=== PATIENT | female | born 2005 | race Caucasian/White ===

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

== ENCOUNTER 2023-03-20 12:42 | Outpatient (CLI) | payer OTHER, SELFPAY ==
[2023-03-20 13:12] LABS: Hematocrit 40.1 % (37.0-47.0); Hemoglobin 13.2 g/dL (12.0-15.0); Mean Corpuscular HGB Conc 32.9 g/dl (32-36); Mean Corpuscular Hemoglobin 30.7 pg (26-34); Mean Corpuscular Volume 93.3 fl (80-100); Mean Platelet Volume 10.7 fl (7.4-10.4); Platelet Count Result 290 k/mm3 (150-375); Red Cell Distribution Width 12.7 % (11.5-14.5); White Blood Count 8.9 K/mm3 (4.5-10.0)
[2023-03-20 13:42] LABS: Free T4 Free Thyroxine 1.18 ng/mL (0.78-2.19)
== END 2023-03-20 12:43 | disposition home or self-care (01) ==
LOC: ANHLAB 12:46
PROVIDERS: PCP Physician Assistant; Visit Provider Advanced Practice Midwife
DX: N92.6 Irregular menstruation, unspecified (principal)
CPT/HCPCS: 36415; 84439; 84443; 85027

== ENCOUNTER → 2023-06-15 09:13 | Outpatient (CLI) | payer OTHER, SELFPAY ==
--- NOTE | ~2023-06-15 | US_ITS ---
Limited Abdominal Sonogram: Real-time sonographic imaging of the left upper quadrant was performed. Clinical History: Left upper quadrant pain Findings: The spleen is normal in size and echotexture. No focal splenic mass seen. Visualized left kidney is unremarkable, without hydronephrosis. No free fluid seen. Impression: No significant abnormality seen. Reviewed, dictated and finalized at [facility]. VITY THERAPIST Impression: No significant abnormality seen.
== END ==
PROVIDERS: PCP Physician Assistant; Visit Provider Physician Assistant
DX: R10.12 Left upper quadrant pain (principal)
CPT/HCPCS: 76705

== ENCOUNTER 2025-05-25 22:30 | Emergency (ER) | payer OTHER, SELFPAY ==
--- OUTSIDE RECORDS SUMMARY | 2009-05-12 03:00 | XMS_ITS | Continuity of Care Document ---
Author Organization [facility] Address [address] [place] [address] Phone Care Team Providers Care Senior Staff Specialized Employment Name Role Phone Bhavana Wilson Unavailable Unavailable Procedures Procedure Date Eye Exam, New Patient Refraction Advance Directives Directive Yes / No Effective Date File Name No Information Encounters Encounter Description Practice Location Reason(s) For Visit Diagnoses Date Provider Providers Copied on Encounter [facility], [id number] [place] [address] [address], [place], [place], [id number], [place] tel:[phone] SEC [facility] No Information 1-200 9 Katie Bateman. [address] [facility] , [address], [place], [address], [place]. tel:[phone] Family History Family Member Type Diagnosis Age At Onset No Information Payers Payer name Insurance type Covered alliance party ID Authoriza timike(s) [employer] Plan [id number] Social History Type Description Quantity Date Captured Comments Sex Female Smoking Status No Information Chief Complaint And Reason For Visit No Information Reason For Referral Reason For Referral No Information History Of Present Illness Encounter Date Complaint History Of Prese nt Illness No Information Functional Status Date Functional Assessmen t No Information Instructions Date Instruction Additional Infor mation No Information Assessments Type Assessment Date No Information Patient Care Teams Name Effective Dates (start - stop) Status Members No Information
--- OUTSIDE RECORDS SUMMARY | 2018-10-06 09:22 | XMS_ITS | Continuity of Care Document ---
Author Organization [facility] Address [address] [place] [address] Phone Care Team Providers Care Cement Gun Operator Name Role Phone Enrique Balderas MD Unavailable Unavailable Allergies, Adverse Reactions, Alerts Substance Reaction Status Criticality No Known Allergies Active No Inform ation Medications Medication Instructions Dosage Effective Dates (start - stop) Status Comments Qvar 40 mcg/actuation Metered Aerosol oral inhaler INHALE 2 PUFF BY INHALATION ROUTE 2 TIMES EVERY DAY - Active Auvi-Q 0.3 mg/0.3 mL injection, auto-injector inject 0.3 milliliter by intramuscular route once as needed for anaphylaxis 0.3 MG - Active 4 syringes total please ProAir HFA 90 mcg/actuation aerosol inhaler inhale 2 puff by inhalation route every 4 - 6 hours as needed - Active loratadine 10 mg tablet take 1 tablet by oral route every day 10 MG - Active Qvar 40 mcg/actuation Metered Aerosol oral inhaler inhale 2 puff by inhalation route 2 times every day - No Longer Active Advance Directives Directive Yes / No Effective Date File Name No Information Encounters Encounter Description Practice Location Reason(s) For Visit Diagnoses Date Provider Providers Copied on Encounter [email or web address], [address], [place], [place], [address], tel:[phone] Transfer Allergy No Information 9 Andrey Nunez. [address] [address], [place], [place], [id number] , [place]. tel: [phone] [facility], [address], [place], [place], [address], [place] tel:[phone] Transfer Allergy Peanut allergyAllergic rhinitis caused by moldAllergic rhinitis due to animal hair and danderMild persistent asthma without complication Andrey Nunez. [address] [address], [place], [place], [address] , . tel: [phone] Referring Provider: Lex Martinez, [address] [facility] [address], [place], [address]. tel:[phone] Family History Family Member Type Diagnosis Age At Onset Mother Problem (finding) Allergies Mother Problem (finding) asthma Father Problem (finding) asthma Payers Payer name Insurance type Covered constitution party ID Nelly seo(s) [facility] [id number] Social History Type Description Quantity Date Captured Comments Sex Female Smoking Status No Information Chief Complaint And Reason For Visit No Information Reason For Referral Reason For Referral No Information History Of Present Illness Encounter Date Complaint History Of Prese nt Illness No Information Functional Status Date Functional Assessmen t No Information Medications Administered Medication Instructions Dosage Effective Dates (start - stop) Status Comments No Drug Therapy Prescribed Instructions Date Instruction Additional Infor mation No Information Assessments Type Assessment Date No Information Patient Care Teams Name Effective Dates (start - stop) Status Members No Information
[2025-05-25 22:35] VITALS: BP 143/102; PULSE 99; RESP 14; TEMP 36.7; O2SAT 100
[2025-05-25 23:36] LABS: Add Urine Microscopic? YES; Appearance Urine Cloudy (Clear); Glucose Urine UA Negative (Negative); Leukocyte Esterase Ur 3+ LEU/UL (Negative); Need Manual Microscopic Reviewed; Nitrate Urine Negative (Negative); Non Pathogenic Casts 0-2; Specific Grav Ur 1.019 (1.001-1.035)
--- NOTE | 2025-05-26 01:33 | ED.FEMALEGU ---
HPI - Female Genitourinary General Chief complaint: Urogenital-Female Stated complaint: Bladder pain x 3weeks Time Seen by Provider: 05/26/25 01:22 History of Present Illness HPI Narrative: Patient is a 19-year-old female who presents to the ER with a 3 week history of urinary symptoms. She reports she went to urgent care last week and they told her she did not have urinary tract infection. Patient reports she has continued to have bladder ?pressure along with decreased amounts of urine and increased frequency. She denies any burning with urination, recent fevers, or acute back pain. Patient reports she is on her menstrual period right now. She denies any other history pertinent to this ER visit, although she reports she had multiple urinary tract infections as a child. Related Data Home Medications ?Medication ?Instructions ?Recorded ?Confirmed ?Last Taken ?Type albuterol sulfate 90 mcg/actuation 2 puff inhalation QID PRN Wheezing 06/29/21 06/29/21 Unknown History aerosol inhaler Allergies Allergy/AdvReac Type Severity Reaction Status Date / Time peanut Allergy Severe Anaphylaxis Verified 05/25/25 22:39 Review of Systems Review of Systems: All systems reviewed & are unremarkable except as noted in HPI and below PMFSH Past Medical History Medical History Asthma Social History Social History Smoking status: Never smoker Alcohol intake: never Substance use: never Living arrangements: with family Occupation/Education: student Gender identity (if verbalized by the patient): Female Exam Narrative: GENERAL: Well appearing, well-nourished, non-toxic, in no acute distress. HEAD: Normocephalic, atraumatic. NECK: Supple. No adenopathy, no masses. RESPIRATORY: Airway patent, respirations nonlabored. Clear to auscultation bilaterally, no rales, rhonchi, wheezing. CARDIOVASCULAR: Regular rate and rhythm without murmurs, rubs, or gallops. Peripheral pulses 2+ and equal bilaterally. ABDOMINAL: Soft, nontender, nondistended, no hepatosplenomegaly. Normoactive BS. MUSCULOSKELETAL: Moves all extremities. Strength/ROM intact without gross deformities. SKIN: Warm, dry, normal color. No rashes. NEURO: A&O X3. Speech clear. Cranial nerves II-XII intact. No ataxic movements. PSYCHIATRIC: Appropriate mood and affect. Normal interaction. Course Vital Signs Vital signs: Vital Signs Temperature 36.7 C 05/25/25 22:35 Pulse Rate 99 05/25/25 22:35 Respiratory Rate 14 05/25/25 22:35 Blood Pressure 143/102 H 05/25/25 22:35 Pulse Oximetry 100 05/25/25 22:35 Oxygen Delivery Room Air 05/25/25 22:35 Temperature 36.7 C 05/25/25 22:35 Pulse Rate 99 05/25/25 22:35 Respiratory Rate 14 05/25/25 22:35 Blood Pressure 143/102 H 05/25/25 22:35 Pulse Oximetry 100 05/25/25 22:35 Oxygen Delivery Room Air 05/25/25 22:35 MDM - Female Genitourinary MDM Narrative Medical decision making narrative: Patient is a 19-year-old female who presents to the ER with a 3 week history of urinary symptoms. She reports she went to urgent care last week and they told her she did not have urinary tract infection. Patient reports she has continued to have bladder ?pressure along with decreased amounts of urine and increased frequency. She denies any burning with urination, recent fevers, or acute back pain. Patient reports she is on her menstrual period right now. She denies any other history pertinent to this ER visit, although she reports she had multiple urinary tract infections as a child. Patient Education/Shared MDM: Results of lab work shared with patient. She will be given Toradol, pyridium, and her 1st dose antibiotics here in the ER. Patient strongly advised to maintain hydration status upon discharge and follow-up with her PCP in a week for re-evaluation. She will be discharged home with a prescription for pyridium and Bactrim. Strict return precautions provided. Patient verbalized understanding and is in agreement with plan. Vital signs stable at time of discharge. All questions answered. Differential Diagnosis Differential diagnosis: Likely urinary tract infection, cystitis and dysmenorrhea Lab Data Attestation: I reviewed the patient's lab results. Labs: Lab Results 05/25/25 Range/Units 22:45 Urine Color Yellow (Yellow) Urine Appearance Cloudy H (Clear) Urine pH 5.5 (5.0-9.0) Ur Specific [place] 1.019 (1.001-1.035) Urine Protein 2+ H (Negative) mg/dL Urine Glucose (UA) Negative (Negative) mg/dL Urine Ketones Trace H (Negative) mg/dL Ur Blood (Man) 2+ H (Negative) Urine Nitrate Negative (Negative) Urine Bilirubin Negative (Negative) Urine Urobilinogen 0.2 (<2.0) mg/dL Add Ur Microanalysis Reviewed Leukocyte Esterase Rfl 3+ H (Negative) TRACY/UL Urine RBC 51-100 H (0-2) /hpf Urine WBC >100 H (0-3) /hpf Ur Squamous Epith Cells Few (Few) /hpf Urine Bacteria 1+ H /hpf Urine Casts 0-2 Discharge Plan Discharge Clinical Impression: Urinary tract infection Patient Disposition: Home Condition: Stable Instructions: Antibiotic Form, Urinary Tract Infection in Women (ED) Additional Instructions: Please return to the ER with any worsening symptoms. Follow-up with primary care provider in 1 week to ensure your urinary tract infection is gone. Take all medications as prescribed, including regularly scheduled medications. Please complete your full dose of antibiotics. You may take ibuprofen and pyridium as needed for pain control. Patient Language: Occitan Prescriptions: New sulfamethoxazole-trimethoprim [Bactrim DS] 800-160 mg tablet 1 tablet PO Q12H 5 Days Qty: 10 0RF phenazopyridine [Pyridium] 200 mg tablet 200 mg PO TID Qty: 6 0RF No Action albuterol sulfate 90 mcg/actuation HFA aerosol inhaler 2 puff INHALATION QID PRN (Reason: Wheezing) methylprednisolone [Medrol (Govind)] 4 mg tablets,dose pack 4 mg PO DAILY Qty: 21 0RF Rx Instructions: take per package instruction albuterol sulfate 90 mcg/actuation HFA aerosol inhaler 2 puff inhalation QID PRN (Reason: shortness of breath or wheezing) Qty: 8.5 0RF ipratropium-albuterol 0.5 mg-3 mg(2.5 mg base)/3 mL solution for nebulization 3 ml inhalation Q4H PRN (Reason: shortness of breath or wheezing) Qty: 180 0RF guaifenesin 200 mg/5 mL liquid 100 mg PO Q4H PRN (Reason: congestion) Qty: 118 0RF Follow-up/Referrals: Henry,BIENVENIDO Doty [Primary Care Provider, Unknown] Time of Disposition: 01:37
[2025-05-26] MEDS: SULFAMETHOXAZOLE/TRIMETHOPRIM 800/160 MG DS TABLET 2 TAB PO (01:39)
[2025-05-26] MEDS: PHENAZOPYRIDINE HCL 100 MG TABLET 200 MG PO (01:39)
[2025-05-26] MEDS: KETOROLAC (*BKC) 60 MG/2 ML VIAL IM (01:39)
--- OUTSIDE RECORDS SUMMARY | 2025-05-26 01:42 | XMS_ITS | Clinical Summary ---
Author Organization [address] Address [address] [place] [id number] Care Team Providers Care Clean Room Operator Name Role Phone Lalitha Figueroa Primary Care Pr ovider Allergies No known active allergies Medications No known medications Active Problems No known active problems Encounters Date Type Department Care Team Description 05/19/2025 Results Follow-Up [facility] After Hours - [address] [id number] Estrellita Cortes NP Urine culture Urine, bladder 05/18/2025 9:16 PM CDT - 05/18/2025 11:59 [place] [address] Dysuria Discharge Disposition: Discharge to home or self care 05/18/2025 9:15 PM CDT Office Visit [facility] After [facility] - [address] [address] Estrellita Cortes NP Dysuria (Primary Dx) from Last 3 Months Social History Tobacco Use Types Packs/Day Years Used Date Smoking Tobacco: Never Smokeless Tobacco: Never Tobacco Cessation:Counseling Given: No Alcohol Use Standard Drinks/Week Comments Yes 1 (1 standard drink = 0.6 oz pur e alcohol) AUDIT-C Answer Date Recorded Q1: How often do you have a drink containing alc ohol? 2-4 times a month 05/18/2025 Q2: How many drinks containi ng alcohol do you have on a typical day when you are drinking? 1 or 2 05/18/2025 Q3: How often do you have si x or more drinks on one occasion? 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 Gender Identity Not on file Sexual Orientation Not on file Obstetrics History Last Filed Vital Signs Vital Sign Reading Time Taken Comments Blood Pressure 123/82 05/18/2025 9:11 PM CDT Pulse 84 05/18/2025 9:11 PM CDT Temperature 36.6 C (97.8 F) 05/18/2025 9:11 PM CDT Respiratory Rate 18 05/18/2025 9:11 PM CDT Oxygen Saturation 99% 05/18/2025 9:11 PM CDT Inhaled Oxygen Concentration - - Weight 69 kg (152 lb 1.9 oz) 05/18/2025 9:11 PM CDT Height - - Body Mass Index - - Plan of Treatment Health Maintenance Due Date Last Done Comments Cervical Cancer Screening 2003 Depression Screening 2003 Hepatitis C Screening 2003 Pneumococcal vaccine <65 (1 of 1 - PPSV23, PCV20, or PCV21) 12/21/2009 04/18/2005, 10/10/2004, 07/17/2004, Additional history exists HPV Vaccines (1 - 3-dose series) 12/21/2018 Meningococcal B Vaccine (1 of 2 - Standard) 2019 Regular Well Visit/Exam 18-64 12/21/2021 Covid-19 Vaccine (3 - season) 2025 05/20/2021, 04/29/2021 DTaP/Tdap/Td Vaccine (7 - Td or Tdap) 04/12/2025 04/12/2015, 03/10/2009, 09/04/2005, Additional history exists Influenza Vaccine (#1) 2025 7, 09/04/2005, 05/30/2005 Hepatitis B Screening Completed 10/10/2004 , 07/17/2004, 05/09/2004, Additional history exists Varicella Vaccines Completed 02/23/2008, 01/01/2005 Meningococcal Vaccine Aged Out 04/12/2015 No ricardo carmen eligible based on patient's age to complete this topic Procedures Procedure Name Priority Date/Time Associated Diagnosis Comments URINE CULTURE Routine 05/18/2025 9:16 PM CDT Dysuria POCT URINALYSIS DIPSTICK Routine 05/18/2025 9:15 PM CDT Dysuria from Last 3 Months Results * Urine culture Urine, bladder (05/18/2025 9:16 PM CDT) Report Final Report: Less than 100,000 colonies/mL (clinically insignificant growth based on current clinical standards) Comment:Testing performed by : [facility], [address] [place] [address]., [id number] Organism (CLINICALLY INSIGNIFICANT GROWTH [facility] Urine, bladder 05/18/2025 9: 16 PM CDT 05/19/2025 1:28 AM CDT Narrative [facility] - 05/20/2025 8:47 AM CDT Testing performed by [facility] Micro[facility] Laboratory ([phone]) Estrellita Cortes NP LAB MICROBIOLOGY - GENERAL O RDERABLES Final Result [facility] Department [place] [address] * (ABNORMAL) POCT urinalysis dipstick (05/18/2025 9:15 PM CDT) Color, Urine, POC Yellow Clarity, ur, POC Clear Clear Glucose, ur, POC Negative Negative Bilirubin, ur, POC Negative Negative Ketones, ur, POC Trace(A) Negative Specific [place], POC 1.030 1.003 - 1.030 Blood, ur, POC Small(A) Negative pH, ur, POC 5.5 5.0 - 8.0 Protein, ur, POC 100.(A) Negative Urobilinogen, urine, POC 0.2 0.2 - 1.0 mg/dL Nitrite, ur, POC Negative Negative Leukocytes, ur, POC Small(A) Negative Lot Number [id number] Urine 05/18/2025 9:15 PM CDT Estrellita Cortes COMPUTER COMPOSITOR POINT OF CARE TEST ORDERABLE S Final Result from Last 3 Months Insurance [facility] Member Subscriber Plan / Payer ( fective 2024-Present) Name:Nay Rollins Relation to Subscriber:Self Name:Nay Rollins Payer ID:[id number] (NAIC) Group ID:[id number] Type:HEALTHCARE/EXCHANGE Address: [place] [id number] Care Teams Clean Room Operator Relationship Specialty Start Date End Date Lalitha Figueroa PA [address] [place] [address] PCP - General Physician Er Nurse 05/18/25
[2025-05-26 02:12] VITALS: BP 107/67; PULSE 64; RESP 14; TEMP 36.6; O2SAT 98
== END 2025-05-26 02:13 | disposition home or self-care (01) ==
LOC: ANHED 05-26 01:40
PROVIDERS: Student in an Organized Health Care Education/Training Program; Emergency Provider Registered Nurse; PCP Physician Assistant
DX: N39.0 Urinary tract infection, site not specified (principal)
CPT/HCPCS: 81001; 87086; 96372; 99283; A9270; J1885